=== PATIENT | male | born 1960 | race Caucasian/White ===

== ENCOUNTER 2017-07-07 13:46 | Emergency (ER) | payer BC ==
[2017-07-07 14:13] VITALS: BP 111/74
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
== END 2017-07-07 15:15 | disposition home or self-care (01) ==
LOC: UCEAST 13:46
DX: J40 Bronchitis, not specified as acute or chronic (principal)
CPT/HCPCS: 99212; G0463

== ENCOUNTER 2017-11-09 17:49 | Emergency (ER) | payer BC ==
[2017-11-09 18:19] VITALS: BP 128/87
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
--- NOTE | 2017-11-09 19:39 | RAD ---
INDICATION: Left elbow pain after a fall the previous COMPARISON: None. TECHNIQUE: 4 views left elbow. REPORT: The visualized bones of the left elbow are well corticated and properly aligned. There is no radiographically apparent fracture or dislocation. There is no radiographic evidence of pathologic joint effusion. There is a 3 mm subcutaneous hyperdense focus overlying the anterior left forearm at the level of the radial head. IMPRESSION: 1. Normal radiograph of the left elbow. 2. Subcutaneous 3 mm foreign body overlying the ulnar aspect anterior left forearm of unknown chronicity. If the patient's symptoms persist further follow-up imaging is recommended.
== END 2017-11-09 20:15 | disposition home or self-care (01) ==
LOC: UCEAST 17:49
DX: S53.402A Unspecified sprain of left elbow, initial encounter (principal); W10.9XXA Fall (on) (from) unspecified stairs and steps, initial encounter; Y92.9 Unspecified place or not applicable
CPT/HCPCS: 99213; G0463